=== PATIENT | male | born 1980 ===

== ENCOUNTER 2020-07-05 13:17 | Emergency (ER) | payer MEDICAID ==
[~2020-07-05] VITALS: Ht 188 cm; Wt 172.0 kg
--- NOTE | 2020-07-05 14:29 | NUR ---
I asked pt what we can do for him today, he just wants the voices to stop. MD at bedside.
[2020-07-05] MEDS ORDERED: LORazepam 1 MG tablet PO ONE (14:40)
[2020-07-05 14:51] LABS: BASOPHILS # (AUTO) 0.1 X10'3 (0-0.2); BASOPHILS % (AUTO) 0.6 % (0-1); EOSINOPHILS # (AUTO) 0.1 X10'3 (0-0.9); HEMATOCRIT 49.6 % (42.0-52.0); HEMOGLOBIN 16.8 g/dl (14.0-17.9); LYMPHOCYTES # (AUTO) 2.4 X10'3 (1.1-4.8); LYMPHOCYTES % (AUTO) 25.7 % (21-51); MEAN CORPUSCULAR HGB CONC 33.9 g/dL (33.0-36.5); MEAN CORPUSCULAR VOLUME 88.5 FL (78-98); MONOCYTES # (AUTO) 0.9 X10'3 (0-0.9); MONOCYTES % (AUTO) 9.6 % (2-12); NEUTROPHILS # (AUTO) 5.8 X10'3 (1.8-7.7); NEUTROPHILS % (AUTO) 63.1 % (42-75); PLATELET COUNT 205 X10'3 (140-440); RED CELL DISTRIBUTION WIDTH 14.1 % (11.5-14.5); WHITE BLOOD COUNT 9.2 X10'3 (4.5-11.0)
[2020-07-05 15:07] LABS: ALANINE AMINOTRANSFERASE 17 U/L (12-78); ALBUMIN 4.2 G/DL (3.4-5.0); ALKALINE PHOSPHATASE 113 IU/L (46-116); ANION GAP 8 (8-16); ASPARTATE AMINO TRANSFERASE 29 U/L (10-37); BILIRUBIN,TOTAL 0.8 MG/DL (0.1-1.0); BLOOD UREA NITROGEN 18 MG/DL (7-18); BUN/CREATININE RATIO 18.6 (5.4-32.0); CALCIUM 8.9 MG/DL (8.5-10.1); CHLORIDE 104 MMOL/L (99-107); CREATININE 0.97 MG/DL (0.60-1.10); GLUCOSE 102 MG/DL (70-104); POTASSIUM 3.8 MMOL/L (3.5-5.1); SODIUM 140 MMOL/L (135-145); TOTAL PROTEIN 8.4 G/DL (6.4-8.2); eGFR 86 ML/MIN
[2020-07-05] MEDS ORDERED: NO HOME MEDS (15:11)
--- NOTE | 2020-07-05 15:11 | NUR ---
Pt states he is not taking any home medications at this time.
[2020-07-05 15:16] LABS: ETHANOL < 0.010 GM/DL (0.0-0.010); TROPONIN I < 0.04 NG/ML (0.0-0.05)
[2020-07-05 15:34] LABS: UA COLLECTION TYPE VOIDED
[2020-07-05 15:35] LABS: CLARITY,URINE CLOUDY (Clear); GLUCOSE, URINE NEGATIVE (Neg); KETONES,URINE NEGATIVE (Neg); LEUKOCYTE ESTERASE ,URINE TRACE (Neg); NITRITES, URINE NEGATIVE (Neg); OCCULT BLOOD,URINE TRACE-INTACT (Neg); PH,URINE 5.5 (4.8-8.0); PROTEIN,URINE NEGATIVE (Neg)
[2020-07-05 15:36] LABS: COLOR,URINE DARK YELLOW (Yellow)
--- NOTE | 2020-07-05 15:41 | NUR ---
BH Provider at bedside to evaluate Patient.
[2020-07-05 15:42] LABS: MUCUS STRANDS MANY /LPF (Neg)
[2020-07-05 15:43] LABS: SQUAMOUS EPITHELIAL CELL,UR MODERATE /LPF (FEW)
[2020-07-05 15:44] LABS: BACTERIA,URINE 1+ /HPF (Neg); URINE AMPHETAMINE SCREEN POSITIVE (Neg); URINE BARBITUATE SCREEN NEGATIVE (Neg); URINE BENZODIAZEPINES SCREEN NEGATIVE (Neg); URINE CANNABINOID SCREEN NEGATIVE (Neg); URINE COCAINE SCREEN NEGATIVE (Neg); URINE METHADONE SCREEN NEGATIVE (Neg); URINE OPIATE SCREEN NEGATIVE (Neg); URINE PHENCYCLIDINE SCREEN NEGATIVE (Neg)
[2020-07-05] MEDS ORDERED: HALO10TA13 PO (15:54)
[2020-07-05] MEDS ORDERED: HYDR50CA PO (15:54)
[2020-07-05] MEDS ORDERED: BENZ1TAB7 PO (15:54)
[2020-07-05] MEDS ORDERED: LAMO25TA4 PO (15:54)
[2020-07-05 16:11] VITALS: BP 154/88
== END 2020-07-05 16:12 | disposition home or self-care (01) ==
LOC: ER 13:19
DX: F41.9 Anxiety disorder, unspecified (principal); R44.0 Auditory hallucinations; F31.9 Bipolar disorder, unspecified; Z79.899 Other long term (current) drug therapy
CPT/HCPCS: 36415; 71045; 80053; 80305; 80320; 81001; 82948; 83880; 84443; 84484; 85025; 87088; 93005; 99285